=== PATIENT | male | born 2000 | race Caucasian/White ===

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

== ENCOUNTER 2020-03-08 11:14 | Emergency (ER) | payer MEDICAID, SELFPAY ==
[~2020-03-08] VITALS: Ht 182.9 cm; Wt 63.5 kg
[2020-03-08 11:22] VITALS: Ht 182.9 cm; Wt 63.5 kg
[2020-03-08 12:52] VITALS: BP 96/59
== END 2020-03-08 12:52 | disposition home or self-care (01) ==
LOC: ED 11:14
DX: J02.9 Acute pharyngitis, unspecified (principal); R50.9 Fever, unspecified; J45.909 Unspecified asthma, uncomplicated; F17.210 Nicotine dependence, cigarettes, uncomplicated; Z20.828 Contact with and (suspected) exposure to other viral communicable diseases; Z88.5 Allergy status to narcotic agent; Z71.6 Tobacco abuse counseling
CPT/HCPCS: 99406; Q0092; U0003-CS

== ENCOUNTER 2020-03-09 00:55 | Emergency (ER) | payer MEDICAID, SELFPAY ==
[~2020-03-09] VITALS: Ht 182.9 cm; Wt 63.5 kg
[2020-03-09 01:02] VITALS: Ht 182.9 cm; Wt 63.5 kg
[2020-03-09 03:36] VITALS: BP 110/75
== END 2020-03-09 03:37 | disposition home or self-care (01) ==
LOC: ED 00:55
DX: B34.9 Viral infection, unspecified (principal); G44.209 Tension-type headache, unspecified, not intractable; J45.909 Unspecified asthma, uncomplicated; Z88.5 Allergy status to narcotic agent; Z20.828 Contact with and (suspected) exposure to other viral communicable diseases
CPT/HCPCS: J8597

== ENCOUNTER 2020-05-09 17:40 | Emergency (ER) | payer MEDICAID ==
[~2020-05-09] VITALS: Ht 182.9 cm; Wt 59.4 kg
[2020-05-09 17:44] VITALS: Ht 182.9 cm; Wt 59.4 kg
[2020-05-09 18:18] VITALS: BP 113/45
== END 2020-05-09 18:18 | disposition home or self-care (01) ==
LOC: ED 17:40
DX: L55.0 Sunburn of first degree (principal)